=== PATIENT | male | born 1945 | race Caucasian/White ===

== ENCOUNTER 2016-08-22 16:26 | Outpatient (CLI) | payer MEDICARE, OTHER | END 2016-08-22 16:27 | disposition home or self-care (01) | DX: M47.812 Spondylosis without myelopathy or radiculopathy, cervical region (principal); M50.30 Other cervical disc degeneration, unspecified cervical region ==

== ENCOUNTER 2016-09-17 10:02 | Outpatient (CLI) | payer MEDICARE, OTHER | END 2016-09-17 10:03 | disposition home or self-care (01) | DX: M50.222 Other cervical disc displacement at C5-C6 level (principal); M50.30 Other cervical disc degeneration, unspecified cervical region ==

== ENCOUNTER 2016-09-19 09:02 | Outpatient (CLI) | payer MEDICARE, OTHER | END 2016-09-19 09:03 | disposition home or self-care (01) | DX: M47.812 Spondylosis without myelopathy or radiculopathy, cervical region (principal); M50.322 Other cervical disc degeneration at C5-C6 level; M43.22 Fusion of spine, cervical region ==